=== PATIENT | female | born 1950 | race Caucasian/White ===

== ENCOUNTER 2024-08-07 14:28 | Observation (INO) | payer OTHER ==
--- OUTSIDE RECORDS SUMMARY | 2024-08-07 14:39 | XMS REPORT | Clinical Summary ---
Author Name Unknown Organization [facility] [place] Address [address] [place] [address] Care Team Providers Care Tmd Teacher Assistant Name Role Phone Derick Villegas MD Unavailable [phone] Gaviota Sanders MD Unavailable [phone] Derick Villegas MD Primary Care Provider [phone] Grisel Foreman MD Primary Care Provider + Fani Pal MD Primary Care Provider [phone] Allergies Active Allergy Reactions Criticality Noted Date Comments Atropine-Demerol Nausea And Vomiting Low 05/29/2022 Meperidine Other (See Comments) Medium 10/06/2022 Nausea and vomiting Medications Medication Sig Dispensed Refills Start Date End Date Status multivitamin (MULTIPLE VITAMINS ORAL) Take 2 capsules by mouth twice daily. Active magnesium oxide (MAOX) 400 mg tablet Take 1 tablet (400 mg) by mouth daily. Active docosahexaenoic acid/epa (FISH OIL ORAL) Take 2 capsules by mouth twice daily. Active UNABLE TO FIND Take 4 capsules by mouth twice daily. Super Green Raw Food Supplement Active ascorbic acid, vitamin C, (VITAMIN C) 1000 mg tablet Take 1 tablet (1,000 mg) by mouth daily. Takes 4 - 6 tablets daily Active ferrous sulfate (IRON ORAL) Take 80 mg by mouth twice daily. Active cholecalciferol, vitamin D3, (VITAMIN D3 ORAL) Take 5,000 Int'l Units by mouth daily. Active UNABLE TO FIND Take 1 capsule by mouth daily. Beta Glucan 10mg Immune Supplement Active Lactobacillus acidophilus (PROBIOTIC ORAL) Take 1 capsule by mouth twice daily. Active BIOTIN ORAL Take 1 capsule by mouth daily. Active GARLIC ORAL Take 1 capsule by mouth twice daily. Active UNABLE TO FIND Take 1 capsule by mouth daily. Tebbetts [place] Extract Immune Support Active UNABLE TO FIND Take 1 capsule by mouth as needed. Oral enzymes Active Active Problems Problem Noted Date Diagnosed Date Malignant neoplasm of cervix uteri 10/27/2022 Last Assessment & Plan: Antonia Villarreal is a 72 y.o. 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 - Cervical biopsy collected in clinic today as described above. Will follow up pathology and call patient. - Plan for transvaginal ultrasound today or tomorrow for further assessment. Pt seen and evaluated with Dr. Paz. Nona Menendez MD, [facility] PGY3 Encounters Date Type Department Care Team Description 06/01/2024 Orders Only [facility] [address] [place] [address], [facility] [place] [address] La Nena Friedman, [facility] 12/01/2023 Telephone [facility] [address] [place] [address], 6th Floor Elevator [place], [place] [phone] Derick Villegas MD imaging results (patient requesting to mail imaging results from 10/05 & 10/20 to address provided in the chart) 11/09/2023 Telephone [facility] [address] [place] [address], [facility] [place] [address] Derick Villegas MD 11/08/2023 Orders Only [facility] [address] [place] [address], [facility] [place] [address] La Nena Friedman, [facility] Malignant neoplasm of overlapping sites of cervix uteri (Primary Dx) 11/08/2023 Telephone [facility] [address] [place] [address] [place] [address] Derick Villegas MD Requested all appts to be cancel. Please assist. (Requested all appts to be cancel. Please assist.) 11/02/2023 Orders Only [facility] [address] [place], [place] [address] [address] Froy Driver, Laci Malignant neoplasm of overlapping sites of cervix uteri (Primary Dx) 11/02/2023 Orders Only [facility] [address] [place] [id number] Derick Villegas MD Malignant neoplasm of cervix uteri, not otherwise specified (Primary Dx) 11/02/2023 Telephone [facility] [address] [place] [phone] Derick Villegas MD results & treatment plan (patient returning call from Dr. Villegas regarding PET scan results and treatment plan) 10/20/2023 1:00 PM CONDUCTOR AND ENGINEER - 10/20/2023 11:59 PM CONDUCTOR AND ENGINEER Hospital Encounter [facility] [address] [place] [id number] Shante Contreras APRN Malignant neoplasm of cervix uteri, not otherwise specified; Malignant neoplasm of endocervix Discharge Disposition: Home 10/14/2023 Orders Only [facility] [address] [place] [id number] Shante Contreras APRN Malignant neoplasm of cervix uteri, not otherwise specified (Primary Dx) 10/08/2023 Orders Only [facility] [address] [place], [place] [address] [address] Contreras, Shante L, FIBERGLASSER Malignant neoplasm of cervix uteri, not otherwise specified (Primary Dx); Malignant neoplasm of endocervix 10/06/2023 Telephone [facility] [address] [place] [id number] Derick Villegas MD test results (Pt's wants to speak with team about getting results from yesterday's test) 10/05/2023 2:30 PM CONDUCTOR AND ENGINEER Ancillary Procedure General Ultrasound [address] [place] [address], [address] [place] [id number] Derick Villegas MD Malignant neoplasm of overlapping sites of cervix uteri 10/05/2023 8:30 AM CONDUCTOR AND ENGINEER Follow-Up [facility] [address] [place] [address] Derick Villegas MD Malignant neoplasm of overlapping sites of cervix uteri 10/05/2023 Travel 09/30/2023 [facility] [address] [place] [id number] Derick Villegas MD 09/30/2023 Orders Only [facility] [address] [place] [id number] Derick Villegas MD Malignant neoplasm of overlapping sites of cervix uteri (Primary Dx) 09/30/2023 [facility] [address] [place] [address] Derick Villegas MD 09/30/2023 Telephone [facility] [address] [place] [phone] Derick Villegas MD Calling to speak with care regarding to move her appt soone (Calling to speak with care regarding to move her appt sooner . Pt had started bleeding again. Please follow up.) 09/29/2023 [facility] [address] [place] [address] Derick Villegas MD Requested to speak with the care team regarding some compli (Requested to speak with the care team regarding some complications having if dr Villegas can see her sooner. Please follow up) 08/17/2023 1:30 PM CDT Follow-Up [facility] Center [address] [facility], 6th [place] [address] Derick Villegas MD Malignant neoplasm of overlapping sites of cervix uteri 08/17/2023 Travel 08/16/2023 7:30 AM CDT Ancillary Procedure PET Imaging [address] [facility], 6th [place] [address] Shante Contreras APRN Malignant neoplasm of overlapping sites of cervix uteri after 08/08/2023 Medical History Medical History Date Comments Anemia 09/23/22 Family History Medical History Relation Name Comments Cancer Brother Prostate cancer Father Colon cancer Mother Lymphoma Sister Relation Name Status Comments Brother Father Mother Sister Social History Tobacco Use Types Packs/Day Years Used Date Smoking Tobacco: Never Smokeless Tobacco: Never Tobacco Cessation:Counseling Given: Not Answered Alcohol Use Standard Drinks/Week Comments Never 0 (1 standard drink = 0.6 oz pur e alcohol) Sex and Gender Information Value Date Recorded Sex Assigned at Not on file Gender Identity Not on file Sexual Orientation Not on file Job Start Date Occupation Industry Not on file Not on file Not on file Obstetrics History Last Filed Vital Signs Vital Sign Reading Time Taken Comments Blood Pressure 132/77 10/05/2023 8:59 AM CONDUCTOR AND ENGINEER Pulse 106 10/05/2023 8:59 AM CONDUCTOR AND ENGINEER Temperature 36.8 C (98.2 F) 10/05/2023 8:59 AM CS T Respiratory Rate 16 10/05/2023 8:59 AM CONDUCTOR AND ENGINEER Oxygen Saturation 99% 10/05/2023 8:59 AM CONDUCTOR AND ENGINEER Inhaled Oxygen Concentration - - Weight 88.6 kg (195 lb 5.2 oz) 10/20/2023 1:26 P M CONDUCTOR AND ENGINEER Height 160 cm (5' 2.99") 08/16/2023 7:27 AM CDT Body Mass Index 34.61 08/16/2023 7:27 AM CDT Plan of Treatment Health Maintenance Due Date Last Done Comments Pneumococcal Vaccine: 65+ Years (1 of 1 - PCV) 018 COVID-19 Vaccine (2023-25 season) 2024 Influenza Vaccine (#1) 2024 Procedures Procedure Name Priority Date/Time Associated Diagnosis Comments PETCT F18 FDG (FLUORODEOXYGLUCOSE) WITH CONTRAST Routine 10/20/2023 3:25 PM CONDUCTOR AND ENGINEER Malignant neoplasm of cervix uteri, not otherwise specified Malignant neoplasm of endocervix POC CREATININE Routine 10/20/2023 1:41 PM CONDUCTOR AND ENGINEER MDA AP IHC WORKUP Routine 10/14/2023 3:0 4 PM CONDUCTOR AND ENGINEER Malignant neoplasm of cervix uteri, not otherwise specified US TRANSVAGINAL Routine 10/05/2023 11:52 AM CONDUCTOR AND ENGINEER Malignant neoplasm of overlapping sites of cervix uteri PATHOLOGY BIOPSY INTERPRETATION Routine 10/05/2023 9:46 AM CONDUCTOR AND ENGINEER Malignant neoplasm of overlapping sites of cervix uteri PETCT CONTRAST ENHANCED SUBSEQUENT TREATMENT STRATEGY Routine 08/16/2023 9:18 AM CDT Malignant neoplasm of overlapping sites of cervix uteri POC CREATININE Routine 08/16/2023 7:35 AM CDT after 08/08/2023 Results * PETCT F18 FDG (Fluorodeoxyglucose) with contrast (10/20/2023 3:25 PM CONDUCTOR AND ENGINEER) Anatomical Region Laterality Modality Whole Body Positron Emissio n Tomography (PET) 10/22/2023 2:06 PM CONDUCTOR AND ENGINEER Impressions 10/22/2023 2:20 PM CONDUCTOR AND ENGINEER Since 08/16/2023, 1. Interval increase extent hypermetabolic uterine lesion centered in the cervix, consistent with known primary malignancy. 2. Interval increase in size and FDG avidity of a peritoneal nodule just superior to the umbilicus, probably metastasis. ACTIONABLE ITEMS/RECOMMENDATIONS: None. Narrative 10/22/2023 2:20 PM CONDUCTOR AND ENGINEER FULL RESULT: Examination: 18F-FDG-PET/CT with contrast, 10/20/2023 3:25 PM Clinical History: Cervical cancer Indication: Restaging Comparison: 08/16/2023 Technique: F-18 fluorodeoxyglucose 9.7 mCi was administered intravenously via right AC. To allow for distribution and uptake of radiotracer, the patient was asked to rest quietly for approximately 60-90 minutes. PET/CT imaging was performed from the skull to upper thigh. CT scanning was done for attenuation correction, image registration, and diagnosis with scan parameters optimized to minimize radiation exposure to the patient. The CT portion of the examination was performed with intravenous contrast. SUV measurements are reported as maximum SUV based on body weight unless otherwise specified. Findings: Head and Neck: Physiological tracer uptake in the visualized portion of brain parenchyma, no midline shift. All sinuses are well aerated. Physiologic tracer uptake in the oropharynx and large salivary glands. No suspicious hypermetabolic neck lymphadenopathy. The thyroid glands are normal. Physiological tracer uptake in the neck muscles. Chest: No abnormally enlarged or suspicious hypermetabolic lymphadenopathy in the mediastinum, bilateral mukul and axillary regions. No pleural or pericardial effusions. Grossly stable non-FDG avid subcentimeter pulmonary nodules. For example, a 0.5 cm right upper lobe nodule (image 1:15, previously 0.5 cm). No suspicious hypermetabolic pulmonary nodules. Physiologic tracer uptake in the mediastinal blood pool and the myocardium. No abnormal tracer uptake in the breasts. Abdomen and Pelvis: Hypermetabolic uterine mass centered in the cervix with interval increased extent (SUV 10.2, prior 5.5), consistent with known primary malignancy. A 0.9 x 1.3 cm peritoneal nodule just superior to the umbilicus (image 229, previously 0.7 x 0.9 cm), with SUV 5.8 (prior 2.7), suspicion for metastasis. No abnormal tracer uptake in the liver, gallbladder, spleen, adrenal glands and pancreas. Physiologic tracer uptake in the kidneys, ureters, bladder and bowel loops. No abnormal enlarged or suspicious hypermetabolic lymphadenopathy in the abdomen, pelvis and inguinal regions. Musculoskeletal: No suspicious musculoskeletal lesion. Diffuse increased tracer uptake in the bone marrow, consistent with reactive change. Procedure Note Jean Ross MD - 10/22/2023 FULL RESULT: Examination: 18F-FDG-PET/CT with contrast, 10/20/2023 3:25 PM Clinical History: Cervical cancer Indication: Restaging Comparison: 08/16/2023 Technique: F-18 fluorodeoxyglucose 9.7 mCi was administered intravenously via rightAC. To allow for distribution and uptake of radiotracer, the patient wasasked to rest quietly for approximately 60-90 minutes. PET/CT imaging wasperformed from the skull to upper thigh. CT scanning was done forattenuation correction, image registration, and diagnosis with scanparameters optimized to minimize radiation exposure to the patient. The CTportion of the examination was performed with intravenous contrast. SUVmeasurements are reported as maximum SUV based on body weight unlessotherwise specified. Findings: Head and Neck: Physiological tracer uptake in the visualized portion of brain parenchyma,no midline shift. All sinuses are well aerated. Physiologic tracer uptakein the oropharynx and large salivary glands. No suspicious hypermetabolicneck lymphadenopathy. The thyroid glands are normal. Physiological traceruptake in the neck muscles. Chest: No abnormally enlarged or suspicious hypermetabolic lymphadenopathy in themediastinum, bilateral mukul and axillary regions. No pleural orpericardial effusions. Grossly stable non-FDG avid subcentimeter pulmonarynodules. For example, a 0.5 cm right upper lobe nodule (image 1:15,previously 0.5 cm). No suspicious hypermetabolic pulmonary nodules.Physiologic tracer uptake in the mediastinal blood pool and themyocardium. No abnormal tracer uptake in the breasts. Abdomen and Pelvis: Hypermetabolic uterine mass centered in the cervixwith interval increased extent (SUV 10.2, prior 5.5), consistent withknown primary malignancy. A 0.9 x 1.3 cm peritoneal nodule just superiorto the umbilicus (image 229, previously 0.7 x 0.9 cm), with SUV 5.8 (prior2.7), suspicion for metastasis. No abnormal tracer uptake in the liver, gallbladder, spleen, adrenalglands and pancreas. Physiologic tracer uptake in the kidneys, ureters,bladder and bowel loops. No abnormal enlarged or suspicious hypermetaboliclymphadenopathy in the abdomen, pelvis and inguinal regions. Musculoskeletal: No suspicious musculoskeletal lesion. Diffuse increased tracer uptake inthe bone marrow, consistent with reactive change. IMPRESSION: Since 08/16/2023, 1. Interval increase extent hypermetabolic uterine lesion centered in thecervix, consistent with known primary malignancy. 2. Interval increase in size and FDG avidity of a peritoneal nodule justsuperior to the umbilicus, probably metastasis. ACTIONABLE ITEMS/RECOMMENDATIONS: None. Shante Contreras HARLEY IMG PETCT ORDERABLES * POC Creatinine (10/20/2023 1:41 PM CONDUCTOR AND ENGINEER) Only the most recent of2 resultswithin the time period is included. POC Creatinine 0.7 0.6 - 1.3 mg/dL 10/20/2023 1:43 PM CONDUCTOR AND ENGINEER [facility] Comment:Medications, especia lly hydroxyurea or supplements, such as ascorbate, can interfere with test results causing a falsely and significantly higher result than expected. If a problem is suspected with a patient's result, a sample should be sent to the laboratory for confirmatory testing. POC eGFR 93 >=60 mL/min/1.7 3 sq. m 10/20/2023 1:43 PM CONDUCTOR AND ENGINEER [facility] Comment: The eGFRcr is calculated with the 2020 CKD-EPI creatinine equation using creatinine, patient's age, and sex for adults 18 years of age and older. Other factors, especially muscle mass, may affect accuracy and need to be considered. According to the Kidney Disease: Improving Global Outcomes (KDIGO) CKD Work Group 2012 Clinical Practice Guideline, chronic kidney disease (CKD) is defined as the abnormalities of kidney structure or function, present for more than 3 months, with implications for health. CKD should be classified by cause, GFR category, and albuminuria category. KDIGO guidelines provide the following GFR categories. Stage / Description / GFR mL/min/1.73 m2: G1* / Normal or high / >= 90 G2* / Mildly decreased / 60-89 G3a / Mildly to moderately decreased / 45-59 G3b / Moderately to severely decreased / 30-44 G4 / Severely decreased / 15-29 G5 / Kidney failure / <15 *In the absence of evidence of kidney damage, neither G1 nor G2 fulfill criteria for CKD. Blood 10/20/2023 1:41 PM CONDUCTOR AND ENGINEER 10/20/2023 1:43 PM CONDUCTOR AND ENGINEER Narrative [facility] - 10/20/2023 1:43 PM CONDUCTOR AND ENGINEER Method description: The i-STAT is an analyzer used for in vitro quantification of various analytes in whole blood. The device uses a single disposable cartridge which contains microfabricated sensors, a calibration solution, fluidics system, and a waste chamber. Each test cartridge contains chemically sensitive biosensors on a silicon chip that are configured to perform specific tests. The microfabricated sensors measure analyte concentration by an electrochemical assay. Shanteshanice Contreras FIBERGLASSER POCT ORDERABLES - DE VICE [facility] Unless otherwise noted, all lab tests performed by: Division of Pathology and Laboratory Medicine [address] [place] [id number] * IHC Workup (10/14/2023 3:04 PM CONDUCTOR AND ENGINEER) Tissue 10/14/2023 3:04 PM CONDUCTOR AND ENGINEER 10/14/2023 3:04 PM CONDUCTOR AND ENGINEER Shante L Ben RENDONN MDA AP BIOMARKER ORD ERABLES Performing Organization Address [facility]/ZIP Co de Phone Number [facility] [address] [address], [place] * US Transvaginal (10/05/2023 11:52 AM CONDUCTOR AND ENGINEER) Anatomical Region Laterality Modality Pelvis Ultrasound 10/05/2023 1:10 PM CONDUCTOR AND ENGINEER Impressions 10/05/2023 1:20 PM CONDUCTOR AND ENGINEER Posterior lower uterine segment/cervical 4.4 cm mass without vascularity, suspicious for tumor given history of cervical and endometrial carcinoma. Thickened hyperechoic endometrium at 1.6 cm. Ovaries are not visualized. MRI of the pelvis with be useful for further characterization of the cervical mass, and possible localization of the ovaries. ACTIONABLE ITEMS/RECOMMENDATIONS: None. Narrative 10/05/2023 1:20 PM CONDUCTOR AND ENGINEER Examination: US TRANSVAGINAL on 10/05/2023 11:52 AM. Clinical History: Malignant neoplasm of overlapping sites of cervix uteri. Indication: Bleeding. Comparison: None available. TECHNIQUE: Transvaginal grayscale and color Doppler ultrasound of the pelvis was performed. FINDINGS: Uterus: 6.4 x 5 x 1.6 cm. In the posterior lower uterine segment involving the cervix is a hypoechoic 4.4 x 4.1 cm heterogeneous lesion without significant vascularity, suspicious for tumor involvement given recent history. Endometrium: Endometrium is thickened at 1.6 cm and hyperechoic without suspicious enhancing lesion. Left Ovary: Not visualized. No adnexal mass. Right Ovary: Not visualized. No adnexal mass. Fluid: None. Procedure Note Shirley Jansen MD - 10/05/2023 Examination: US TRANSVAGINAL on 10/05/2023 11:52 AM. Clinical History: Malignant neoplasm of overlapping sites of cervixuteri. Indication: Bleeding. Comparison: None available. TECHNIQUE: Transvaginal grayscale and color Doppler ultrasound of thepelvis was performed. FINDINGS: Uterus: 6.4 x 5 x 1.6 cm. In the posterior lower uterine segment involvingthe cervix is a hypoechoic 4.4 x 4.1 cm heterogeneous lesion withoutsignificant vascularity, suspicious for tumor involvement given recenthistory. Endometrium: Endometrium is thickened at 1.6 cm and hyperechoic withoutsuspicious enhancing lesion. Left Ovary: Not visualized. No adnexal mass. Right Ovary: Not visualized. No adnexal mass. Fluid: None. IMPRESSION: Posterior lower uterine segment/cervical 4.4 cm mass without vascularity,suspicious for tumor given history of cervical and endometrialcarcinoma. Thickened hyperechoic endometrium at 1.6 cm. Ovaries are not visualized. MRI of the pelvis with be useful for further characterization of thecervical mass, and possible localization of the ovaries. ACTIONABLE ITEMS/RECOMMENDATIONS: None. Derick Villegas MD IM US ORDERABLES * Pathology Biopsy Interpretation (10/05/2023 9:46 AM CONDUCTOR AND ENGINEER) Submitted Clinical History Malignant neoplasm of overlapping sites of cervix uteri [C53.8] 10/07/2023 10:28 AM CONDUCTOR AND ENGINEER [facility] Diagnosis A: Cervix: MINUTE DETACHED FRAGMENTS OF CLEAR CELL CARCINOMA IN BACKGROUND OF EXTENSIVE ACUTE INFLAMMATION. (SEE COMMENT) 10/07/2023 10:28 AM [facility] Comment The fragments are positive for cytokeratin 7, and Napsin A, while negative for ER, and NE. 10/07/2023 10:28 AM [facility] Gross Description A: Cervix: Multiple bean to red-brown friable pieces of tissue measuring 0.7 x 0.4 x 0.2 cm in aggregate, entirely submitted in A1. GM 10/07/2023 10:28 AM [facility] Biomarker Block(s) T: A1 (insufficient) N: N/A 10/07/2023 10:28 AM [facility] Disclaimer "Some tests reported here may have been developed and performance characteristics determined by [facility]. These tests have not been specifically cleared or approved by the U.S. Food and Drug Administration. If applicable, controls were reviewed and showed appropriate reactivity." 10/07/2023 10:28 AM [facility] Tissue (Cervix) Non-blood Collection / Unknown 10/05/2023 9:46 AM CONDUCTOR AND ENGINEER 10/05/2023 10:40 AM CONDUCTOR AND ENGINEER Derick Villegas MD LAB PATHOLOGY ORDER YANE Performing Organization Address City/State/[facility] Co de Phone Number [facility] [address] [place] [address], * PETCT Contrast Enhanced Subsequent Treatment Strategy (08/16/2023 9:18 AM CDT) Anatomical Region Laterality Modality Whole Body Positron Emissio n Tomography (PET) 08/16/2023 9:25 AM CDT Impressions 08/16/2023 9:44 AM CDT Fluid is noted within the endometrial cavity extending to the external os likely due to cervical stenosis. Focal uptake is noted within the external os, which is new since the prior examination, may represent inflammation versus recurrent disease. Correlation with physical examination is recommended. Fibroids are noted within the uterus. Focal area of adenomyosis is noted within the uterine fundus, which demonstrates mild contrast enhancement however currently is not FDG avid. Focal nodular density posterior to the umbilicus, within the omentum may represent fat necrosis however should be closely monitored on future routine studies. This is unchanged since the prior examination. ACTIONABLE ITEMS/RECOMMENDATIONS: See Impression Narrative 08/16/2023 9:44 AM CDT FULL RESULT: Examination: 18F-FDG-PET/CT with contrast, 08/16/2023 9:18 AM Clinical History: Malignant neoplasm of the cervix Indication: PET/CT was obtained for staging restaging and treatment options Comparison: 05/11/2023 Technique: Following intravenous and demonstration of 11.6 mCi of F-18 FDG via the right antecubital vein a PET/CT was performed from the vertex of the skull to the proximal thighs. CT scanning was done for attenuation correction, image registration, and diagnosis with scan parameters optimized to minimize radiation exposure to the patient. The CT portion of the examination was performed with intravenous contrast. SUV measurements are reported as maximum SUV based on body weight unless otherwise specified. Findings: Head and Neck: No FDG avid disease is noted within the brain. No neck adenopathy is identified to suggest metastatic disease. Chest: The heart is normal in size. There is no hilar adenopathy. No lung nodules are noted to suggest metastatic disease. Abdomen and Pelvis: No hepatic lesions are identified to suggest malignancy. There is no intrahepatic or extra hepatic biliary ductal dilation. The spleen, the adrenal glands and the pancreas are normal. There is no evidence of hydronephrosis. There is no retroperitoneal adenopathy. Sections through the pelvis demonstrate no fluid collections. The uterus measures 9.1 x 8.8 cm and is unchanged in size since the prior study. A fibroid is noted within the right uterine fundus (image 265) and is not FDG avid. The focal area of enhancement noted within the uterine fundus (image 261) may represent focal area of adenomyosis and is not FDG avid. Fluid is noted within the endometrial cavity, extending to the external os, likely related to cervical stenosis. The uptake in the cervix, at the internal os has a maximum SUV of 4.1 and has decreased from 5.1. Focal uptake is noted within the cervix at the level of the external os has a maximum SUV of 5.5 and is new since the prior study, may represent inflammation versus recurrence. Clinical correlation is recommended. There is no pelvic or inguinal adenopathy. Focal area of uptake is noted within the omentum (image 234) at the level of the umbilicus has a maximum SUV of 2.6 and is relatively stable since the prior study represents focal area of fat necrosis less likely an implant. Musculoskeletal: No definite skeletal metastases are noted. Procedure Note Maya Jang MD - 08/16/2023 FULL RESULT: Examination: 18F-FDG-PET/CT with contrast, 08/16/2023 9:18 AM Clinical History: Malignant neoplasm of the cervix Indication: PET/CT was obtained for staging restaging and treatmentoptions Comparison: 05/11/2023 Technique: Following intravenous and demonstration of 11.6 mCi of F-18 FDG via theright antecubital vein a PET/CT was performed from the vertex of the skullto the proximal thighs. CT scanning was done for attenuation correction,image registration, and diagnosis with scan parameters optimized tominimize radiation exposure to the patient. The CT portion of theexamination was performed with intravenous contrast. SUV measurements arereported as maximum SUV based on body weight unless otherwise specified. Findings: Head and Neck: No FDG avid disease is noted within the brain. No neck adenopathy isidentified to suggest metastatic disease. Chest: The heart is normal in size. There is no hilar adenopathy. No lung nodules are noted to suggest metastatic disease. Abdomen and Pelvis: No hepatic lesions are identified to suggest malignancy. There is nointrahepatic or extra hepatic biliary ductal dilation. The spleen, the adrenal glands and the pancreas are normal. There is no evidence of hydronephrosis. There is no retroperitonealadenopathy. Sections through the pelvis demonstrate no fluid collections. The uterus measures 9.1 x 8.8 cm and is unchanged in size since the priorstudy. A fibroid is noted within the right uterine fundus (image 265) andis not FDG avid. The focal area of enhancement noted within the uterinefundus (image 261) may represent focal area of adenomyosis and is not FDGavid. Fluid is noted within the endometrial cavity, extending to theexternal os, likely related to cervical stenosis. The uptake in thecervix, at the internal os has a maximum SUV of 4.1 and has decreased from5.1. Focal uptake is noted within the cervix at the level of the externalos has a maximum SUV of 5.5 and is new since the prior study, mayrepresent inflammation versus recurrence. Clinical correlation isrecommended. There is no pelvic or inguinal adenopathy. Focal area of uptake is noted within the omentum (image 234) at the levelof the umbilicus has a maximum SUV of 2.6 and is relatively stable sincethe prior study represents focal area of fat necrosis less likely animplant. Musculoskeletal: No definite skeletal metastases are noted. IMPRESSION: Fluid is noted within the endometrial cavity extending to the external oslikely due to cervical stenosis. Focal uptake is noted within the external os, which is new since the priorexamination, may represent inflammation versus recurrent disease.Correlation with physical examination is recommended. Fibroids are noted within the uterus. Focal area of adenomyosis is notedwithin the uterine fundus, which demonstrates mild contrast enhancementhowever currently is not FDG avid. Focal nodular density posterior to the umbilicus, within the omentum mayrepresent fat necrosis however should be closely monitored on futureroutine studies. This is unchanged since the prior examination. ACTIONABLE ITEMS/RECOMMENDATIONS: See Impression Shante Ney CarmonaContreras FIBERGLASSER IMG PETCT ORDERABLES after 08/08/2023 Care Teams Tmd Teacher Assistant Relationship Specialty Start Date End Date Derick Villegas MD [address] [place] [phone] [email or web address] PCP - General Gynecological Oncology 08/17/23 05/15/24 Grisel Foreman MD [address] [place] [phone] [email or web address] PCP - General Gynecological Oncology 05/16/24 05/17/24 Fani Pal MD [address] [place] [phone] [email or web address] PCP - General Gynecological Oncology 05/18/24 Derick Vlilegas MD [address] [place] [phone] [email or web address] Consulting Physician Gynecological Oncology 01/22/23 Gaviota Sanders MD [address] [place] [phone] [email or web address] Consulting Physician Radiation Oncology 10/28/22
[2024-08-07] MEDS ORDERED: GLUCAGON 1 MG/VIAL IM PRN (15:04)
[2024-08-07] MEDS ORDERED: D10W 125 ML IV PRN (15:04)
[2024-08-07] MEDS ORDERED: ALBUTEROL 2.5 MG/3 ML NEB SOL IH PRN (15:07)
[2024-08-07] MEDS: FLU (Fluarix Triv) TS24-25(6MOS UP)/PF 45 MCG/0.5 ML Syringe IM ONE (15:15)
[2024-08-07 15:29] VITALS: BMI 30.1
[2024-08-07] MEDS: PNEUMOCOCCAL VACCINE 0.5 ML IMVAC ONE (16:00)
[2024-08-07] MEDS: NACHLORIDE 0.45% 1,000 ML IV SCH (16:00)
[2024-08-07] MEDS ORDERED: ACETAMINOPHEN 325 MG TABLET PO PRN (16:00)
[2024-08-07 16:28] LABS: Absolute Lymphocytes (CBC) 0.6 K/uL (0.7-4.9); Absolute Monocytes 0.8 K/uL (0.1-1.3); Absolute Neutrophil 17.6 K/uL (1.8-8.0); Hematocrit 27.2 % (36.0-45.0); Hemoglobin 8.5 g/dL (12.0-15.0); Lymphocytes % 3.3 % (15.3-44.8); MCH 23.8 pg (27.0-35.0); MCHC 31.4 g/dL (32.0-36.0); MCV 75.8 fL (80-100); MPV 6.2 fL (7.6-11.3); Monocytes % 4.2 % (3.3-12.3); Neutrophils % 92.5 % (41.7-73.7); Platelets 681 thou/uL (152-406); RBC Red Blood Cell Count 3.58 M/uL (3.86-4.86); Red Cell Distribution Width 15.2 % (12.1-15.2)
[2024-08-07] MEDS: INSULIN REGULAR (HUMAN) 100 UNIT/ML SQ SCH (16:30)
[2024-08-07 16:39] LABS: PT Prothrombin Time 14.6 SECONDS (9.4-12.5); PTT, Activated Partial Thromb 16.6 SECONDS (24.3-36.9); Protime INR 1.31
[2024-08-07 16:47] LABS: ALT/SGPT 23 U/L (13-56); AST/SGOT 19 U/L (15-37); Albumin 2.2 g/dL (3.4-5.0); Albumin/Globulin Ratio 0.4 (1.1-1.8); Alkaline Phosphatase 104 U/L (45-117); BUN Blood Urea Nitrogen 10 mg/dL (7-18); Bicarbonate 27 mEq/L (21-32); Bilirubin Total 0.4 mg/dL (0.2-1.0); Globulin 5.9 g/dL (2.3-3.5); Glomerular Filtration Rate 92 ml/min (=/>90); Glucose Level 237 mg/dL (74-106); Protein, Total 8.1 g/dL (6.4-8.2); Sodium Level 126 mEq/L (136-145)
[2024-08-07 17:11] VITALS: BP 181/74
[2024-08-07 17:13] LABS: Bilirubin Direct < 0.2 mg/dL (0-0.2); Bilirubin Indirect, Calculated 0.2 mg/dL (0.2-0.8)
[2024-08-07] MEDS: BISOPROLOL 5 MG TABLET PO SCH (17:18)
[2024-08-07 18:04] VITALS: O2SAT 100
[2024-08-07 18:51] LABS: Blood Morphology Comment NOT SEEN (NOT SEEN); Platelet Estimate INCR; White Blood Cell Scan OK (OK)
[2024-08-07] MEDS ORDERED: IPRATROPIUM BROM 0.5MG/2.5ML NEB SCH (19:00)
[2024-08-07] MEDS ORDERED: LEVALBUTEROL 1.25 MG/3 ML NEB NEB SCH (19:00)
[2024-08-07] MEDS ORDERED: Mupirocin NASAL 2 APPL/1 GM TUBE NAS SCH (21:00)
[2024-08-08] MEDS ORDERED: ENOXAPARIN 40 MG/0.4 ML SQ SCH (09:00)
--- NOTE | 2024-08-12 23:16 | P.DS ---
Admission Date: 08/07/24 Discharge Date: 08/12/24 Disposition: AMA-LEFT AGAINST MEDICAL ADVIC Discharge Condition: GOOD Hospital Course: PATIENT SIGNED AGAINST MEDICAL ADVISE. SHE HAS STAGE 4 CANCER AND SHE HAS REFUSED CARE SO FAR. SHE TRIES TO DO NATURAL STUFF LIKE CLEANSING. Vital Signs/Physical Exam: Temp Pulse Resp BP Pulse Ox 90 20 181/74 H 100 08/07/24 17:18 08/07/24 16:00 08/07/24 17:18 08/07/24 16:00 Laboratory Data at Discharge: WBC 19.10 thou/uL (4.3-10.9) H 08/07/24 16:15 Hgb 8.5 g/dL (12.0-15.0) L 08/07/24 16:15 Hct 27.2 % (36.0-45.0) L 08/07/24 16:15 Plt Count 681 thou/uL (152-406) H 08/07/24 16:15 PT 14.6 SECONDS (9.4-12.5) H 08/07/24 16:15 INR 1.31 08/07/24 16:15 APTT 16.6 SECONDS (24.3-36.9) L 08/07/24 16:15 Sodium 126 mEq/L (136-145) L 08/07/24 16:15 Potassium 4.0 mEq/L (3.5-5.1) 08/07/24 16:15 BUN 10 mg/dL (7-18) 08/07/24 16:15 Creatinine 0.70 mg/dL (0.55-1.02) 08/07/24 16:15 Glucose 237 mg/dL (74-106) H 08/07/24 16:15 Total Bilirubin 0.4 mg/dL (0.2-1.0) 08/07/24 16:15 AST 19 U/L (15-37) 08/07/24 16:15 ALT 23 U/L (13-56) 08/07/24 16:15 Alkaline Phosphatase 104 U/L (45-117) 08/07/24 16:15 Home Medications: NK [No Home Meds] 08/07/24 Followup: Feliciano Webb MD [Primary Care Provider] -
== END 2024-08-07 18:19 | disposition left against medical advice (07) ==
LOC: 4TH 14:35
PROVIDERS: ADMIT Internal Medicine; ATTEND Internal Medicine
DX: R14.0 Abdominal distension (gaseous) (principal); C80.1 Malignant (primary) neoplasm, unspecified; D64.9 Anemia, unspecified; K56.609 Unspecified intestinal obstruction, unspecified as to partial versus complete obstruction; Z53.29 Procedure and treatment not carried out because of patient's decision for other reasons
CPT/HCPCS: 36415; 80048; 80076; 82947; 85025; 85610; 85730; G0378; G0379